=== PATIENT | male | born 1960 | race Caucasian/White ===

== ENCOUNTER 2017-01-18 08:00 | Day surgery (SDC) | payer BC ==
[~2017-01-18] VITALS: Ht 180.3 cm; Wt 98.2 kg
[~2017-01-18 08:00] MED LIST: LIDOCAINE 1% (10mg/ml) 2ml SDV INJ ONE; LR 1,000 ML IV SCH
--- OUTSIDE RECORDS SUMMARY | 2017-01-18 08:04 | XMS REPORT | Referral Summary ---
Author Author [facility], [facility] Organization [facility] Address Unknown Phone Unavailable Care Team Providers Care Surveillance Agent Name Role Phone Jeison Carrasco Primary Care Physician [phone] Encounter VC Date(s): 11/05/16 - 11/05/16 [facility] [address] [place] [id number]- Discharge Diagnosis: Screening, lipid Discharge Diagnosis: Nevus Discharge Diagnosis: Peripheral neuropathy Discharge Diagnosis: Screening for prostate cancer Discharge Disposition: 01-Home or Self Care Attending Physician: Jason Carrasco MD Admitting Physician: Jason Carrasco MD Vital Signs Most recent to 1 oldest [Reference Range]: Peripheral Pulse 70 bpm Rate [60-100 bpm] (11/05/16 3:52 PM) Blood Pressure 120/70 mmHg [90-140/60-90 mmHg] (11/05/16 3:52 PM) Problem List Condition Effective Dates Status Health Status Informant Atrophoderma Active (disorder)(Confirmed ) Benign neoplasm of Active skin (disorder)(Confirmed ) Capillary Active hemangioma(Confirmed ) Hemangioma Active (disorder)(Confirmed ) Inflamed seborrheic Active keratosis (disorder)(Confirmed ) Obesity(Confirmed) Active patient Seborrheic Active keratosis(Confirmed) Nevus(Confirmed) Active Skin tag(Confirmed) Active Allergies, Adverse Reactions, Alerts No Known Medication Allergies Medications No Known Medications Results No data available for this section Immunizations Given and Recorded Vaccine Date Status Refusal Reason tetanus/diphth/pertuss (Tdap) adult/adol 11/05/16 Given tetanus-diphth toxoids (Td) adult/adol 12/05/04 Given Procedures No data available for this section Social History Social History Type Response Smoking Status Never smoker Assessment and Plan Extracted from: Title: CRMMP Author: Jason Carrasco MD Date: 11/05/16 Impression and Plan Diagnosis Need for vaccination ([id number] Z23, Working, Medical). Nevus ([id number]-WO D22.9, Discharge, Medical). Peripheral neuropathy (KHG85-TQ G62.9, Discharge, Medical). Screening for prostate cancer (XNE20-BO Z12.5, Discharge, Medical). Screening, lipid (BQG18-GH Z13.220, Discharge, Medical). Orders Orders (Selected) Outpatient Orders Ordered Boostrix (Tdap) intramuscular suspension: 0.5 mL, IntraMuscular, Once Future (On Hold) BMP: CBC w/ Differential: Fasting Lipid Profile: Hgb A1c: PSA: TSH with Reflex Free T4: Vitamin B12 Level: .
[2017-01-18 08:08] VITALS: Ht 180.3 cm; Wt 98.2 kg
[2017-01-18 08:09] VITALS: BP 148/85; PULSE 64; RESP 14; TEMP 98.6; O2SAT 96
--- NOTE | 2017-01-18 08:30 | NUR ---
IV START PT BECOMES DIAPHORETIC WITH SLOW PULSE-SEE EKG STRIP. COOL, WET CLOTH APPLIED TO PT'S FOREHEAD. PT WAS RESPONDING VERBALLY THE WHOLE TIME. PULSE GRADUALLY INCREASED.
--- NOTE | 2017-01-18 09:04 | ANESPREOP ---
Anesthesia Record Date and Time DATE: 01/18/17 TIME: 09:02 Pre-Op Diagnosis Screening Proposed Surgical Procedure COLONOSCOPY NPO since: water at 0400 Allergies: Coded Allergies: No Known Allergies (Unverified , 01/15/17) Ht/Wt/BMI Height: 5 ' 11.00 " Weight: 98.200 kg BMI: 30.2 kg/m2 Vital Signs Date Time Temp Pulse Resp B/P Pulse Ox O2 Delivery O2 Flow Rate FiO2 01/18/17 08:09 98.6 64 14 148/85 96 Room Air Medications Inpatient Medications Current Medications Medications (Trade) Dose Ordered Sig/Leslie Start Time Stop Time Status Last Admin Dose Admin Lactated Ringer's (Lactated Ringers) 1,000 ml @ 30 mls/hr Q24H 01/18/17 07:00 01/18/17 08:35 30 MLS/HR No Active Prescriptions or Reported Meds Currently on Beta Rajendra: No Medical/Surgical History Anesthesia PMH: Denies: Anesthesia Reactions (PT HAS NEVER HAD SURGERY), Cancer , Clotting Problems, Glaucoma, Malignant Hyperthermia (NO FAMILY HISTORY), Sleep Apnea Smoking Status: Never smoker Has pt. smoked today?: No Use Chewing Tobacco?: No Second Hand Exposure: No Substance Use Type: does not use Alcohol Intake: none Past Surgical History Orthopedic Surgeries: Abdominal Surgeries: Genitourinary Surgeries: Cardiac Surgeries: Endocrine Surgeries: Reproductive Surgeries: Neurological Surgeries: Ear Surgeries: Nose Surgeries: Throat Surgeries: Other Surgeries: Anesthesia Adverse Reactions: FOUND none Family Hx of Anesthesia Advers: none Hx of Motion Sickness: No Pertinent Findings EKG Rhythm: Sinus Rhythm Physical Exam Respiratory: Lungs clear Cardiovascular: FOUND Regular rate, rhythm Airway Assessment Mallampati Score: II TMD: 3 Fingerbreadths Neck Extension: Good Overall Assessment: No Airway Concerns ASA: 1 Plan Anesthesia Plan: TIVA Discussion Discussed risks/options/alternatives of anesthesia and questions answered. Patient consents. Nursing pain assessment noted. Attestation Statement Prior to the delivery of any anesthetic medication, I examined the patient, developed the plan, obtained the patient's consent and discussed the risk and benefits of the procedure with the patient/guardian. MORGAN BENDER CRNA January 18, 2017 09:04
[2017-01-18] MEDS ORDERED: PROPOFOL 500mg 50 ML IV ONE (09:31)
[2017-01-18 09:53] VITALS: BP 87/49; PULSE 64; RESP 16; TEMP 98.1; O2SAT 95
[2017-01-18 10:00] VITALS: BP 93/56; PULSE 74; RESP 16; O2SAT 96
[2017-01-18 10:10] VITALS: BP 94/54; PULSE 57; RESP 12; O2SAT 96
[2017-01-18 10:20] VITALS: BP 106/65; PULSE 60; RESP 22; O2SAT 97
[2017-01-18 10:30] VITALS: BP 115/76; PULSE 62; RESP 20; O2SAT 98
--- NOTE | 2017-01-18 10:37 | ANESPO ---
Post-Op Note Date 01/18/17 Time: 10:36 Status Vital Signs Date Time Temp Pulse Resp B/P Pulse Ox O2 Delivery O2 Flow Rate FiO2 01/18/17 10:20 60 22 106/65 97 Room Air 01/18/17 09:53 98.1 6.00 Respiratory Function: Airway patent, Regular respirations Cardiovascular Function: Regular pulse Mental Status: Alert/oriented Pain Level Intensity: 0 (0) Unable to Assess Pain Due To: Medicated/Sleeping Hydration: Taking po fluids Complications during Recovery None apparent Post-Anesthesia Notes pt. [email or web address] well Follow-Up Instructions Instructions Per Surgeon ALEXANDER REDDY CRNA January 18, 2017 10:37
--- NOTE | 2017-01-18 15:59 | OPNOTEF ---
DATE OF SERVICE 01/18/2017 SURGEON Rajesh Oliva MD PREOPERATIVE DIAGNOSIS Colorectal cancer surveillance. POSTOPERATIVE DIAGNOSIS Colorectal cancer surveillance, minimal sigmoid diverticulosis. PROCEDURE Colonoscopy. ANESTHESIA TIVA BRIEF HISTORY/INDICATIONS Mr. Dunn is a 56-year-old gentleman who presents today to [facility] to undergo a colonoscopy to serve as a portion of his overall colorectal cancer surveillance. For completeness please refer to notes included in the patient's chart. FINDINGS Upon colonoscopy there was no evidence for angiodysplastic lesions, polyps or eric malignancies. The patient was found to have a minimal number of diverticula within the sigmoid colon region. NARRATIVE OF PROCEDURE After informed consent was obtained, the patient was brought to the endoscopy suite and placed on the table in the left lateral decubitus position. The patient subsequently underwent total intravenous anesthesia by the nurse manager heart failure per my request. A formal timeout was then completed. Next, a digital rectal examination was performed. Normal sphincter tone. No rectal masses were appreciated. An Olympus colonoscope was inserted in the anus and advanced with the lumen of the colon under direct visualization at all times until the cecum was ascertained. Triangulation of the tenia coli, ileocecal valve and appendiceal lumen were all visualized. The scope was then slowly withdrawn, again maintaining visualization of the lumen at all times. As stated above, the entire colon was without evidence for angiodysplastic lesions, polyps or eric malignancies. The patient was found to have a minimal number of diverticula within the sigmoid colon region. The scope continued to be withdrawn until it was brought forth back into the rectal vault. A J-maneuver was then performed. No worrisome perianal pathology was noted. The scope was allowed to straighten and was withdrawn through the anal verge. The patient tolerated the procedure without difficulty and was sent back to the preoperative area in stable condition. Secondary to the absence of findings upon this colonoscopy, the patient will not need to undergo a repeat colonoscopy until ten years from now unless new indications should arise. CASEY
== END 2017-01-18 10:40 | disposition home or self-care (01) ==
LOC: SCU 08:00
PROVIDERS: ATTEND Surgery
DX: Z12.11 Encounter for screening for malignant neoplasm of colon (principal); K57.30 Diverticulosis of large intestine without perforation or abscess without bleeding
CPT/HCPCS: 45378; J2704; J7120